=== PATIENT | female | born 1990 ===

== ENCOUNTER 2019-05-30 15:24 | Emergency (ER) | payer SELFPAY ==
[2019-05-30 15:35] VITALS: BP 185/109
== END 2019-05-30 17:30 | disposition left against medical advice (07) ==
LOC: ED 15:24
DX: R00.0 Tachycardia, unspecified (principal); Z53.21 Procedure and treatment not carried out due to patient leaving prior to being seen by health care provider
CPT/HCPCS: 93005; 93010